=== PATIENT | male | born 1995 | race Two or more races ===

== ENCOUNTER 2018-01-26 17:21 | Emergency (ER) | payer OTHER ==
[2018-01-26 17:29] VITALS: BP 126/96
--- NOTE | 2018-01-26 18:24 | EDPHY ---
H & P Time Seen by Provider: 01/26/18 18:07 HPI/ROS: Chief complaint potential bat exposure This patient finished a rabies series on January 13 after exposure to a bat while jogging in [place] in [place]. He explains that the bat literally landed on his hand for moment and then flew off. Wednesday, 2 days prior to arrival while again jogging in the same park in [place] he heard flapping wings a brief 2nd before something struck the top of his head. He glans stop and saw brown colored animal flapping through the air. He is uncertain if this was bat or bird, but it was in a similar location of the park where he had the batting counter few weeks earlier. Concerned about this repeat exposure, he came back in for evaluation to see if he warranted any further rabies shots. ROS: Integumentary: He denies any injuries to scalp the felt like he had a scratch from claw or feet to the animal that bumped into his scalp. Neuro: No headache. No confusion. No muscular rigidity tremors or other complaints. 5 point ROS is otherwise negative. Past Medical/Surgical History: Bat exposure Smoking Status: Never smoked Physical Exam: Physical Exam Vital signs are normal. General: No acute distress HEENT: Atraumatic. Integumentary: Appreciated mild erythema at the posterior vertex of the scalp questions subacute minimal abrasion. No full-thickness wounds. Eyes: Pupils equal and react to light. Extraocular motions are intact. Lungs: No respiratory distress. Cardiac: Brisk capillary refill is intact throughout. Skin: No rash or pallor. Neuro: Alert with no sensorimotor deficits appreciated. Initial differential diagnosis: Bat exposure verses collision with bird. Constitutional: Initial Vital Signs Temperature (C) 37 C 01/26/18 17:27 Heart Rate 66 01/26/18 17:27 Respiratory Rate 16 01/26/18 17:27 Blood Pressure 126/96 H 01/26/18 17:27 O2 Sat (%) 87 L 01/26/18 17:27 O2 Delivery Mode Room Air Allergies/Adverse Reactions: No Known Allergies Allergy (Unverified 01/26/18 17:29) Home Medications: Medication Instructions Recorded Advair 100/50 (*) 01/26/18 MDM/Departure - MDM Medications Given: Discontinued Medications Rabies Vaccine Human Diploid Cell (Rabavert) 2.5 unit IM .ONCE ONE Stop: 01/26/18 18:32 Last Admin: 01/26/18 18:42 Dose: 2.5 unit ED Course/Re-evaluation: Discussion: CDC recommends 2 further rabies immunization boosters if patient has another bat encounter after completing a previous series. Given this, patient was given rabies immunization & will return in 3 days for repeat and final rabies immunization. ("booster") - Depart Disposition: Home, Routine, Self-Care Clinical Impression: bat exposure Condition: Good Instructions: Rabies Vaccine (By injection) Additional Instructions: Diagnosis: Likely bat exposure Plan: Return in 3 days for a 2nd and final rabies vaccine. Referrals: NONE *PRIMARY CARE P,. [Primary Care Provider] - As per Instructions
[2018-01-26] MEDS ORDERED: RABIES VACC, HUMAN DIPLOID/PF 2.5 UNIT VIAL (RABAVERT) IM ONE (18:31)
== END 2018-01-26 18:48 | disposition home or self-care (01) ==
LOC: CED 17:21
DX: Z20.3 Contact with and (suspected) exposure to rabies (principal); Z23 Encounter for immunization